=== PATIENT | male | born 1960 | race Caucasian/White ===

== ENCOUNTER 2018-10-19 15:57 | Inpatient (IN) | payer OTHER ==
[~2018-10-19] VITALS: Ht 190.5 cm; Wt 98.1 kg
[2018-10-19] VITALS (24 sets, daily range): BP systolic 83–119; BP diastolic 47–80
[2018-10-19] MEDS ORDERED: MORPHINE SULFATE 4 MG/ML SYR/VIAL IV ONE (16:00)
[2018-10-19] MEDS ORDERED: HEPARIN 1,000 UNITS/ml 1ML VIAL IV ONE (16:00)
[2018-10-19] MEDS ORDERED: ONDANSETRON HCL 4 MG/2 ML VIAL IV ONE (16:00)
[2018-10-19] MEDS ORDERED: MORPHINE SULF INJ 2 MG/ML SYRINGE 1ML ONE (16:04)
[2018-10-19] MEDS ORDERED: ONDANSETRON HCL 4 MG/2 ML VIAL ONE ×2 (16:04→16:51)
[2018-10-19] MEDS ORDERED: HEPARIN SODIUM (PORCINE) 5000 UNITS/ML 1ML VIAL ONE (16:04)
[2018-10-19] MEDS ORDERED: IOHEXOL 350 MG/ML 100ML IJ ONE (16:21)
[2018-10-19] MEDS ORDERED: LIDOCAINE 2%HCL (LOCAL ANESTH.) INJ 20ML MDV ONE ×2 (16:21→16:23)
[2018-10-19] MEDS ORDERED: ANGIOMAX 250 MG VIAL IV ONE (16:30)
[2018-10-19] MEDS ORDERED: MIDAZOLAM HCL 1MG/1ML-2 ML VIAL ONE (16:31)
[2018-10-19] MEDS ORDERED: SODIUM CHL 0.9% 50 ML ONE (16:31)
[2018-10-19] MEDS ORDERED: fentaNYL CITRATE 100 MCG/2 ML VL ONE (16:31)
[2018-10-19] MEDS ORDERED: EPINEPHrine HCL 1 MG/1 ML AMP ONE (16:31)
[2018-10-19] MEDS ORDERED: ATROPINE SULFATE 1 MG/1 ML VIAL ONE ×2 (16:31→17:04)
[2018-10-19] MEDS ORDERED: NOREPINEPHRINE 8 MG/250ML KIT 0 ML IV ONE (16:45)
[2018-10-19 16:49] LABS: Basophils # (auto) 0 uL; Basophils % (auto) 0.4 % (0.0-2.0); Eosinophils # (auto) 0.1 uL; Eosinophils % (auto) 0.8 % (0.0-7.0); Hematocrit 45.3 % (41.0-53.0); Hemoglobin 15.6 g/dL (13.5-17.5); Lymphocytes # (auto) 4.3 uL; Lymphocytes % (auto) 35.1 % (10.0-50.0); Mean Corpuscular Hemoglobin 32.8 pg (28.0-32.0); Mean Corpuscular Hgb Conc. 34.4 g/dL (32.0-36.0); Mean Corpuscular Volume 95.2 fL (80.0-100.0); Monocytes # (auto) 0.9 uL; Monocytes % (auto) 7.5 % (0.0-12.0); Neutrophils # (auto) 6.9 uL; Neutrophils % (auto) 56.2 % (37.0-80.0); Nucleated Red Blood Cells % 0.1 %; Platelet Count (auto) 254 10^3/uL (140-450); Red Blood Cells 4.77 10^6/uL (4.5-5.90); White Blood Cell 12.3 10^3/uL (4.4-10.8)
[2018-10-19] MEDS ORDERED: DOPamine 1600MCG/ML D5W 250 ML IV ONE (16:53)
[2018-10-19] MEDS ORDERED: EPTIFIBATIDE INJ (2MG/ML) 10ML VIAL IV ONE (16:57)
[2018-10-19 16:59] LABS: Alanine Aminotransferase 16 U/L (16-61); Albumin 3.6 g/dL (3.4-5.0); Anion Gap 10 (5-15); Aspartate Aminotransferase 14 U/L (15-37); BUN/Creatinine Ratio 13.8; Blood Urea Nitrogen 18 mg/dL (7-18); Calcium 8.7 mg/dL (8.5-10.1); Carbon Dioxide 20 mmol/L (21-32); Chloride 111 mmol/L (98-107); GFR African American 72 mL/min; GFR Non-African American 60 mL/min; Glucose 137 mg/dL (74-106); Magnesium 2.2 mg/dL (1.6-2.6); Potassium 3.5 mmol/L (3.5-5.1); Sodium 141 mmol/L (136-145)
[2018-10-19 17:04] LABS: Alkaline Phosphatase 63 U/L (45-117); Bilirubin, Total 0.5 mg/dL (0.2-1.0); Total Protein 6.7 g/dL (6.4-8.2)
[2018-10-19 17:10] LABS: INR 1.04 (0.9-1.15)
[2018-10-19] MEDS ORDERED: ADENOSINE 6 MG/2 ML INJ IV ONE (17:12)
[2018-10-19] MEDS ORDERED: TICAGRELOR 90 MG TAB ONE (17:19)
--- NOTE | 2018-10-19 17:20 | NUR ---
ICU pt S/P Cardiac Cath Report received from Sruthi TITUS. CAMELIALOLA brought to bed 103 following Left Cardiac catheterization, on ekg monitor and portable oxygen. Patient transfered to ICU bed, connected to ICU monitoring and oxygen. Patient educated on need to keep leg straight and flat. Patient verbalized understanding. Site assessed for any bleeding, redness or swelling. Pedal pulses to right assessed for positive tissue perfusion. Patient instructed on need to notify staff immediately if any pain, burning or wetness to site, and any lower back pain. Patient educated on new cardiac medications. All questions and concerns addressed, patient verbalized understanding of all education and instruction. See notes for any further. Patient denies any chest pain at this time, no ST elevation noted on bedside monitor.
--- NOTE | 2018-10-19 17:45 | NUR ---
FAMILY; Patient's Alla and daughter Beatris to bedside. They state Dr. Denton updated them on procedure. Teaching regarding discharge care began; informed patient that he needs to avoid lifting any heavy items for the next 5-7 days. Also discussed importance of taking prescribed Antiplatelet medication.
--- NOTE | 2018-10-19 17:54 | NUR ---
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 See [facility] report for mamadou-op care/vitals/medications. Dressing to right groin is clean, dry, and intact. No bleeding or hematoma noted. Care endorsed to ARIELA Garcia in ICU.
[2018-10-19] MEDS ORDERED: NITROGLYCERIN 0.4 MG SL TAB SL PRN (18:15)
[2018-10-19] MEDS ORDERED: ACETAMINOPHEN 500 MG TAB PO PRN (18:15)
[2018-10-19] MEDS ORDERED: ONDANSETRON HCL 4 MG/2 ML VIAL IV PRN (18:15)
[2018-10-19] MEDS ORDERED: HYDROcodone-ACET 10/325MG TAB PO PRN (18:15)
[2018-10-19] MEDS ORDERED: MORPHINE SULF INJ 2 MG/ML SYRINGE 1ML IV PRN (18:15)
[2018-10-19] MEDS: D5W/SOD CHL 0.45% 1,000 ML IV SCH (18:15)
[2018-10-19 19:25] LABS: Basophils # (auto) 0 uL; Basophils % (auto) 0.3 % (0.0-2.0); Eosinophils # (auto) 0 uL; Eosinophils % (auto) 0.1 % (0.0-7.0); Hematocrit 44.7 % (41.0-53.0); Hemoglobin 14.8 g/dL (13.5-17.5); Lymphocytes # (auto) 1.3 uL; Lymphocytes % (auto) 9.4 % (10.0-50.0); Mean Corpuscular Hemoglobin 31.7 pg (28.0-32.0); Mean Corpuscular Hgb Conc. 33.2 g/dL (32.0-36.0); Mean Corpuscular Volume 95.5 fL (80.0-100.0); Monocytes # (auto) 0.7 uL; Neutrophils # (auto) 12.1 uL; Neutrophils % (auto) 85.2 % (37.0-80.0); Platelet Count (auto) 235 10^3/uL (140-450); Red Blood Cells 4.68 10^6/uL (4.5-5.90); Red Cell Distribution Width 14.3 % (11.8-14.3); White Blood Cell 14.2 10^3/uL (4.4-10.8)
--- NOTE | 2018-10-19 19:30 | NUR ---
Initial Assessment Patient received laying on bed watching television. Patient is awake, alert, and oriented x4. Denies chest pain/discomfort. RR even and unlabored with equal rise and fall on 1L o2 via N/C. Bed in reverse Trendelenburg position to maintain post heart cath precautions including not flexing hips, bending legs, crossing legs, or sitting up. Patient educated about restrictions and verbalized understanding. Abd soft and non-tender. Patient states he is starting to feel urge to void but does not need to urinate yet. States at home he only urinates once every 7-8 hours. Bladder is non-distended. Urinal at bedside. Right groin incision site dressing CDI; site benign with no bleeding, bruising, or hematoma present. Neurovascular status intact with distal pulses x4 extremities, skin warm to touch, capillary refill brisk. Bed in lowest position, side rails up, bed brakes set, bed alarm set. Patient educated about how to use the call light and encouraged to call when needing any assistance and patient verbalized understanding.
[2018-10-19 19:45] LABS: BUN/Creatinine Ratio 15.1; Calcium 8.1 mg/dL (8.5-10.1); Potassium 4.1 mmol/L (3.5-5.1)
--- NOTE | 2018-10-19 19:46 | NUR ---
EKG completed per 1899 MD order. Shows "normal sinus rhythm, normal ECG". Will place in chart.
--- NOTE | 2018-10-19 20:30 | NUR ---
Dinner Dietary department did not bring dinner tray due to patient's late arrival to unit. RN spoke with dietary employee who states it is too late to provide a dinner tray. RN provided patient with two turkey sandwiches, Jello, and crackers for dinner. patient ate 100% and tolerated well.
--- NOTE | 2018-10-19 21:00 | NUR ---
Visitors Multiple visitors at bedside. RN updated on status of patient/POC. They verbalized understanding. No concerns or complaints voiced from them at this time.
[2018-10-19] MEDS: METOPROLOL TARTRATE 25 MG TAB PO SCH (21:21)
[2018-10-19] MEDS: ATORVASTATIN 20 MG TAB PO SCH (21:30)
[2018-10-19] MEDS: TICAGRELOR 90 MG TAB PO SCH (21:30)
--- NOTE | 2018-10-19 22:04 | NUR ---
EKG completed per 2200 MD order. Shows "normal sinus rhythm, normal ECG". Will place in chart.
[2018-10-20] VITALS (62 sets, daily range): BP systolic 72–129; BP diastolic 33–67
--- NOTE | 2018-10-20 01:30 | NUR ---
Ongoing Assessment Patient's family brought in food from outside and patient ate 100%. Patient now resting in bed with eyes closed, RR even and unlabored with equal rise and fall, awakens easily to verbal stimulation. Blood pressure lowered since patient has been sleeping but MAP is 65 or above and patient denies any chest pain, dizziness, SOB, or lightheadedness. Turning self independently in bed. Incision site remains benign with no s/s of bleeding, bruising, or hematoma. Neurovascular status intact with palpable distal pulses, skin warm to touch, capillary refill brisk. IV site intact and patent with no s/s of infiltration or phlebitis noted. No concerns or complaints voiced from patient and he states he is comfortable. Patient has voided three times and his dumped out the urine before RN could measure. Education given. Call light and side table are within reach. Continue close monitoring.
[2018-10-20 04:03] LABS: Basophils # (auto) 0 uL; Basophils % (auto) 0.3 % (0.0-2.0); Eosinophils # (auto) 0.1 uL; Eosinophils % (auto) 1.3 % (0.0-7.0); Hematocrit 37.1 % (41.0-53.0); Hemoglobin 12.8 g/dL (13.5-17.5); Lymphocytes # (auto) 2.8 uL; Lymphocytes % (auto) 29.2 % (10.0-50.0); Mean Corpuscular Hemoglobin 32.6 pg (28.0-32.0); Mean Corpuscular Hgb Conc. 34.4 g/dL (32.0-36.0); Mean Corpuscular Volume 94.8 fL (80.0-100.0); Monocytes # (auto) 0.7 uL; Monocytes % (auto) 7.2 % (0.0-12.0); Neutrophils # (auto) 5.9 uL; Nucleated Red Blood Cells % 0.1 %; Platelet Count (auto) 193 10^3/uL (140-450); Red Blood Cells 3.92 10^6/uL (4.5-5.90); White Blood Cell 9.6 10^3/uL (4.4-10.8)
[2018-10-20] MEDS: D5W/SOD CHL 0.45% 1,000 ML IV SCH ×2 (04:15→14:15)
--- NOTE | 2018-10-20 04:30 | NUR ---
Ongoing Assessment No changes or incidents to report. Patient continues to rest in bed with eyes closed, RR even and unlabored with equal rise and fall, awakens easily to verbal stimulation. Continues to deny any chest pain, dizziness, SOB, or lightheadedness. Turning self independently in bed. Incision site remains benign with no s/s of bleeding, bruising, or hematoma. Neurovascular status intact with palpable distal pulses, skin warm to touch, capillary refill brisk. IV site intact and patent with no s/s of infiltration or phlebitis noted. No concerns or complaints voiced from patient and he states he is comfortable. Call light and side table are within reach. Continue close monitoring.
[2018-10-20 04:35] LABS: BUN/Creatinine Ratio 16.2; Calcium 8.1 mg/dL (8.5-10.1); Potassium 3.9 mmol/L (3.5-5.1)
--- NOTE | 2018-10-20 05:05 | NUR ---
Dr. Denton call RN left ms with Dr. Denton's answering exchange re: critical troponin. Waiting for call back. Note that patient is asymptomatic, denies any chest pain and no ST changes.
--- NOTE | 2018-10-20 07:00 | NUR ---
Report given No changes or incidents to report. Patient continues to rest with no s/s of distress or pain. right groin incision site remains benign. Neurovascular status remains intact and unchanged. IV site intact and patent with no s/s of infiltration or phlebitis noted. All fall and safety precautions intact. Care endorsed to day shift RN.
--- NOTE | 2018-10-20 07:10 | NUR ---
Initial Assessment Patient received laying on bed RESTING WITH EYES CLOSED. Patient OPENED EYES SPONTANEOUSLY UPON ENTERING THE ROOM, ALERT AND ORIENTED X4. Denies chest pain/discomfort. RR even and unlabored with equal rise and fall on ROOM AIR. Abd soft and non-tender. Bladder is non-distended. Urinal at bedside. Right groin incision site dressing CDI; site benign with no bleeding, bruising, or hematoma present. Neurovascular status intact with distal pulses x4 extremities, skin warm to touch, capillary refill brisk. Bed in lowest position, side rails up, bed brakes set, bed alarm set. Patient educated about how to use the call light and encouraged to call when needing any assistance and patient verbalized UNDERSTANDING.
[2018-10-20] MEDS: FAMOTIDINE 20 MG TAB PO SCH (09:31)
[2018-10-20] MEDS: ASPirin 81 mg TAB PO SCH (09:31)
[2018-10-20] MEDS: TICAGRELOR 90 MG TAB PO SCH ×2 (09:32→22:44)
[2018-10-20] MEDS: METOPROLOL TARTRATE 25 MG TAB PO SCH (10:00)
--- NOTE | 2018-10-20 11:57 | NUR ---
FAMILY AT BEDSIDE PATIENTS AT BEDSIDE UPDATED ON PATIENTS STATUS. AND PATIENT VERBALIZED UNDERSTANDING. PATIENT SITTING UP CONVERSING WITH APPROPRIATELY, VITAL SIGNS STABLE. SAFETY PRECAUTIONS IN PLACE. CALL LIGHT AND ALL PERSONAL BELONGINGS IN REACH. WILL CONTINUE TO MONITOR.
--- NOTE | 2018-10-20 13:00 | NUR ---
DR JOHANSEN AT BEDSIDE DR JOHANSEN UPDATED PATIENT ON PATIENT STATUS AND LOW BLOOD PRESSURE AND REQUEST FOR NICOTINE PATCH. NEW ORDERS RECEIVED. DR JOHANSEN DISCUSSED POC WITH PATIENT AND SPOUSE AT BEDSIDE, BOTH VERBALIZED UNDERSTANDING. WILL CONTINUE TO MONITOR.
[2018-10-20] MEDS ORDERED: SODIUM CHLORIDE 0.9% 2,950 ML IV ONE (13:30)
--- NOTE | 2018-10-20 13:55 | NUR ---
CALL FROM [facility] CALL RECEIVED FROM [facility] ([phone]) PROVIDED WITH UPDATED STATUS AND REQUESTED INFORMATION. [facility] STAFF REQUESTED DR BEST PHONE NUMBER TO DISCUSS POSSIBLE TRANSFER INSTEAD OF DISCHARGE TOMORROW. 1400 CALL RECEIVED FROM [facility] TO NOTIFY THEY SPOKE TO DR. JOHANSEN REGARDING TRANSFER AND PATIENTS LOW BLOOD PRESSURE NEEDED FURTHER REVIEW BY [facility] . STAFF NOTIFIED THEY WILL CALL BACK AFTER SPEAKING TO [facility] PHYSICIAN. PATIENT AND SPOUSE AWARE.
--- NOTE | 2018-10-20 16:38 | NUR ---
ICU patient trans to floor REPORT GIVEN TO RN LOLA MCGRAW transferred to [facility] ROOM 271B via WHEELCHAIR on security monitor. PATIENT ALERT AND ORIENTED X4. NOT S/S OF DISTRESS, RESPIRATIONS EVEN AND UNLABORED. PATIENT DENIES ANY CHEST PAIN. All patient personal belongings TAKEN BY SPOUSE.
[2018-10-20] MEDS ORDERED: SODIUM CHLORIDE 0.9% 1,000 ML IV ONE (17:00)
--- NOTE | 2018-10-20 19:10 | NUR ---
Opening Shift Note Assumed care of patient, awake and alert x4. No S/S of distress/SOB or pain. Dressing to right groin is C/D/I, minimal bruising to site, and minimal pain upon palpation. Instructed on POC and to call for assist PRN. All questions and concerns answered, will continue to monitor for changes Q1hr and PRN.
[2018-10-20] MEDS ORDERED: METOPROLOL TARTRATE 25 MG TAB PO SCH (22:00)
[2018-10-20] MEDS: ATORVASTATIN 20 MG TAB PO SCH (22:44)
--- NOTE | 2018-10-21 02:08 | NUR ---
Continuation of Care Assumed care of patient, eyes closed, respirations even and unlabored, appears asleep. No S/S of distress/SOB or pain. Bed in lowest locked position, side rails up x2, call light within reach. Instructed on POC and to call for assist PRN, will continue to monitor for changes Q1hr and PRN. Addendum: 10/21/18 at 0341 by JALEESA PARKER RN RN CORRECTION: Time of note should be 02:18.
--- NOTE | 2018-10-21 02:18 | NUR ---
ENDORSED CARE TO JALEESA RN. PATIENT IS RESTING IN BED. NO S/S OF DISTRESS NOTED.
[2018-10-21 05:00] VITALS: BP 116/69
--- NOTE | 2018-10-21 07:15 | NUR ---
Closing Note Patient lying in bed, eyes closed, respirations even and unlabored, appears asleep. No s/s of distress. Care endorsed to dayshift RN.
[2018-10-21 08:28] VITALS: BP 109/66
[2018-10-21] MEDS: NICOTINE 21MG/24 HR TOPICAL PATCH TD SCH ×2 (10:00→10:43)
[2018-10-21] MEDS: FAMOTIDINE 20 MG TAB PO SCH (10:43)
[2018-10-21] MEDS: ASPirin 81 mg TAB PO SCH (10:44)
[2018-10-21] MEDS: TICAGRELOR 90 MG TAB PO SCH (10:53)
[2018-10-21 12:38] VITALS: BP 116/76
== END 2018-10-21 14:00 | disposition home or self-care (01) | DRG 247 ==
LOC: ER 15:57 → EDBD 15:57 → CATH 16:49 → ICU WEST 16:50 → WEST WING 10-20 16:45 → TELE-WESTW 10-20 20:37
PROVIDERS: ADMIT Specialist; ATTEND Specialist
PROC: 4A023N7 Measurement of Cardiac Sampling and Pressure, Left Heart, Percutaneous Approach (ICD-10-PCS; principal; 2018-10-19)
PROC: 02C03ZZ Extirpation of Matter from Coronary Artery, One Artery, Percutaneous Approach (ICD-10-PCS; 2018-10-19)
PROC: 027034Z Dilation of Coronary Artery, One Artery with Drug-eluting Intraluminal Device, Percutaneous Approach (ICD-10-PCS; 2018-10-19)
PROC: B2151ZZ Fluoroscopy of Left Heart using Low Osmolar Contrast (ICD-10-PCS; 2018-10-19)
PROC: B2151ZZ Fluoroscopy of Left Heart using Low Osmolar Contrast (ICD-10-PCS; 2018-10-19)
PROC: B2111ZZ Fluoroscopy of Multiple Coronary Arteries using Low Osmolar Contrast (ICD-10-PCS; 2018-10-19)
PROC: 3E073PZ Introduction of Platelet Inhibitor into Coronary Artery, Percutaneous Approach (ICD-10-PCS; 2018-10-19)
DX: I21.19 ST elevation (STEMI) myocardial infarction involving other coronary artery of inferior wall (principal); F17.200 Nicotine dependence, unspecified, uncomplicated; I95.89 Other hypotension
CPT/HCPCS: 36415; 71045; 80048; 80053; 83735; 84484; 85025; 85610; 85730; 87081; 93005; 94761; 96374; 96375; 99152; 99153; 99291; C1874; G0378; J0153; J0171; J0461; J2250; J2405